=== PATIENT | female | born 1965 | race Caucasian/White ===

== ENCOUNTER 2017-09-20 11:33 | Emergency (ER) | payer BC ==
[2017-09-20] MEDS ORDERED: HYDROmorphone 2 MG/ML 1 ML SYRINGE IM STA (12:39)
[2017-09-20] MEDS ORDERED: ORPHENADRINE 30 MG/ML 2 ML VIAL IM STA (12:40)
--- NOTE | 2017-09-20 12:44 | ED ---
Back Pain HPI - General Chief Complaint: Back Pain/Injury Stated Complaint: Back Pain Time Seen by Provider: 09/20/17 12:13 Source: patient, RN notes reviewed Limitations: no limitations - History of Present Illness Initial Comments: 52-year-old female presents emergency Department chief complaint of right upper shoulder neck pain region. Patient states that this wasn't present for last week or so. Patient states is worse with movement. Patient states she over did it while scrubbing some force. She states is worse with movement of her neck. She states her is bulging of the muscle. Patient states she has not seen her primary care physician in the 2 weeks of the symptoms. Patient denies any chest pain or shortness breath no focal weakness. - Related Data Home Medications Medication Instructions Recorded Confirmed Hydrocodone/Acetaminophen [[place] 1 tab PO Q6H PRN 09/20/17 09/20/17 10-325] Menthol [Biofreeze] 1 applic TOPICAL QID 09/20/17 09/20/17 Naproxen [Naprosyn] 375 mg PO Q12HR 09/20/17 09/20/17 Previous Rx's Medication Instructions Recorded Cyclobenzaprine [Flexeril] 10 mg PO TID PRN #15 tab 09/20/17 methylPREDNISolone [Medrol Dose 4 mg PO DIRECTED #1 pack 09/20/17 Pack] Allergies Allergy/AdvReac Type Severity Reaction Status Date / Time No Known Allergies Allergy Verified 09/20/17 11:56 Review of Systems ROS Statement: Those systems with pertinent positive or pertinent negative responses have been documented in the HPI. ROS Other: All systems not noted in ROS Statement are negative. Past Medical History Additional Past Medical History / Comment(s): bad back History of Any Multi-Drug Resistant Organisms: None Reported Past Surgical History: Orthopedic Surgery Additional Past Surgical History / Comment(s): righ hand surgery, carpal tunnel , left forearm Past Psychological History: No Psychological Hx Reported Smoking Status: Current every day smoker Past Alcohol Use History: None Reported Past Drug Use History: None Reported General Exam Limitations: no limitations General appearance: alert, in no apparent distress Head exam: Present: atraumatic, normocephalic, normal inspection Eye exam: Present: normal appearance, PERRL, EOMI. Absent: scleral icterus, conjunctival injection, periorbital swelling ENT exam: Present: normal exam, normal oropharynx, mucous membranes moist, TM's normal bilaterally, normal external ear exam Neck exam: Present: normal inspection, tenderness (Over the right trapezius), full ROM (Mild discomfort with range of motion). Absent: meningismus, lymphadenopathy Respiratory exam: Present: normal lung sounds bilaterally. Absent: respiratory distress, wheezes, rales, rhonchi, stridor Cardiovascular Exam: Present: regular rate, normal rhythm, normal heart sounds. Absent: systolic murmur, diastolic murmur, rubs, gallop, clicks Extremities exam: Present: other (Right shoulder there is muscle spasm in the trapezius muscle, pain with palpation over the right trapezius full range of motion right shoulder neurovascular intact) Back exam: Present: normal inspection, full ROM. Absent: tenderness Neurological exam: Present: alert, oriented X3, CN II-XII intact, reflexes normal. Absent: motor sensory deficit Course Vital Signs 09/20/17 11:42 Temperature 97.5 F L Pulse Rate 98 Respiratory 16 Rate Blood Pressure 97/55 O2 Sat by Pulse 92 L Oximetry Medical Decision Making - Medical Decision Making 52-year-old female presented emergency department for right trapezius neck pain. Patient has muscle spasm, strain of her side of her neck. Patient be given muscle relaxers and Medrol Dosepak. She is advised to continue her pain medication and follow-up with primary care physician. Disposition Clinical Impression: Trapezius muscle spasm, Cervical strain Disposition: HOME SELF-CARE Condition: Stable Instructions: Cervical Strain (ED), Muscle Spasm (ED) Additional Instructions: Please return to the Emergency Department if symptoms worsen or any other concerns. Prescriptions: Cyclobenzaprine [Flexeril] 10 mg PO TID PRN #15 tab PRN Reason: Muscle Spasm methylPREDNISolone [Medrol Dose Pack] 4 mg PO DIRECTED #1 pack Referrals: Marco Conti MD [Primary Care Provider] - 1-2 days Time of Disposition: 12:44
[2017-09-20 13:22] VITALS: BP 94/64; PULSE 66; RESP 18; TEMP 97.1
== END 2017-09-20 13:22 | disposition home or self-care (01) ==
LOC: EC 11:33
DX: S16.1XXA Strain of muscle, fascia and tendon at neck level, initial encounter (principal); M62.838 Other muscle spasm; F17.200 Nicotine dependence, unspecified, uncomplicated; Z79.1 Long term (current) use of non-steroidal anti-inflammatories (NSAID); X58.XXXA Exposure to other specified factors, initial encounter
CPT/HCPCS: 99283; 96372 ×2; J1170; J2360

== ENCOUNTER 2017-09-29 09:01 | Emergency (ER) | payer BC ==
[2017-09-29 09:08] VITALS: TEMP 97.8
[2017-09-29] MEDS ORDERED: DIAZEPAM 5 MG TAB PO STA (09:50)
[2017-09-29 10:33] VITALS: BP 130/86; PULSE 70; RESP 18
--- NOTE | 2017-09-29 10:33 | ED ---
Neck Injury/Pain HPI - General Chief Complaint: Neck Pain/Injury Stated Complaint: RT SIDE NUMBNESS Time Seen by Provider: 09/29/17 09:21 Source: patient, RN notes reviewed Mode of arrival: wheelchair Limitations: no limitations - History of Present Illness Initial Comments: 52-year-old female presents emergency Department for recheck for right-sided neck pain. Patient's been junk with the symptoms for 2-3 weeks. Patient was seen here 9 days ago person complaint. Patient complaint of right neck bright upper shoulder region pain. She states that she has numbness and tingling that radiates from that point down into the tips of her fingers. She states that all of her digits at this time. She denies any associated weakness with it. Patient feels that it started while she was cleaning her house and states that she may have overused it or Giardia. Patient states she was actually able to work yesterday which is now made symptoms worse. Patient was advised to follow- up with PCP but states that she cannot get in until next week Tuesday. Patient denies any headache, chest pain, shortness of breath. She states that she does occasionally stretching but has not always structure. Patient's been taking her pain medication and muscle relaxers given here to her. - Related Data Home Medications Medication Instructions Recorded Confirmed Hydrocodone/Acetaminophen [[place] 1 tab PO Q6H PRN 09/20/17 09/29/17 10-325] Menthol [Biofreeze] 1 applic TOPICAL QID PRN 09/20/17 09/29/17 Naproxen [Naprosyn] 375 mg PO Q12HR PRN 09/20/17 09/29/17 Zolpidem [Ambien] 10 mg PO HS PRN 09/29/17 09/29/17 Previous Rx's Medication Instructions Recorded Cyclobenzaprine [Flexeril] 10 mg PO TID PRN #15 tab 09/20/17 Allergies Allergy/AdvReac Type Severity Reaction Status Date / Time No Known Allergies Allergy Verified 09/29/17 09:12 Review of Systems ROS Statement: Those systems with pertinent positive or pertinent negative responses have been documented in the HPI. ROS Other: All systems not noted in ROS Statement are negative. Past Medical History Additional Past Medical History / Comment(s): chronic back pain History of Any Multi-Drug Resistant Organisms: None Reported Past Surgical History: Orthopedic Surgery Additional Past Surgical History / Comment(s): righ hand surgery, carpal tunnel , left forearm Past Psychological History: No Psychological Hx Reported Smoking Status: Current every day smoker Past Alcohol Use History: None Reported Past Drug Use History: None Reported General Exam Limitations: no limitations General appearance: alert, in no apparent distress Head exam: Present: atraumatic, normocephalic, normal inspection Eye exam: Present: normal appearance, PERRL, EOMI. Absent: scleral icterus, conjunctival injection, periorbital swelling ENT exam: Present: normal exam, normal oropharynx, mucous membranes moist, TM's normal bilaterally, normal external ear exam Neck exam: Present: normal inspection, tenderness (Tenderness of the right trapezius, muscle spasm noted, mild tenderness of the right paraspinal region), full ROM. Absent: meningismus, lymphadenopathy Respiratory exam: Present: normal lung sounds bilaterally. Absent: respiratory distress, wheezes, rales, rhonchi, stridor Cardiovascular Exam: Present: regular rate, normal rhythm, normal heart sounds. Absent: systolic murmur, diastolic murmur, rubs, gallop, clicks Extremities exam: Present: other (Upper extremity strength equal bilaterally, neurovascular intact Refill less than 2 seconds with skein drier strength equal 5/5) Course Vital Signs 09/29/17 09/29/17 09:04 10:32 Temperature 97.8 F Pulse Rate 94 70 Respiratory 20 18 Rate Blood Pressure 166/75 130/86 O2 Sat by Pulse 99 93 L Oximetry Medical Decision Making - Medical Decision Making I went up-to-date the patient on her CT results and discuss discharge medications the patient apparently eloped. Patient was not in the room at this time. Disposition Clinical Impression: Trapezius muscle spasm, Cervical strain Disposition: Left Against Medical Advice Referrals: Marco Conti MD [Primary Care Provider] - 1-2 days
--- NOTE | 2017-09-29 10:46 | CT ---
EXAMINATION TYPE: CT cervical spine wo con DATE OF EXAM: 09/29/2017 COMPARISON: NONE HISTORY: Neck pain radiating down right arm, numbness x1 week. No prior. Scanned by:LS and MM. CT DLP: 319 mGycm. Automated Exposure Control for Dose Reduction was Utilized. TECHNIQUE: CT scan of the cervical spine is obtained without contrast, axial images are obtained, sa gittal and coronal reformatted images are also reviewed. FINDINGS: Cervical spine is visualized in its entirety from C1 through upper thoracic levels, demonst rates straightened alignment without evidence of acute fracture or dislocation. Prevertebral soft ti ssue appears within normal limits. The C1-C2 articulation is within normal limits on the coronal maite ges. Vertebral body heights and disc space heights are fairly well-maintained with exception of mild disc space narrowing C6-C7 level. Posterior spur disc complex is seen at this level on sagittal images. Th e atlantodental interval narrowing is noted. Review of axial images shows the C2-C3, C3-C4, and C4-C5 levels all to appear within normal limits. Axial images at C5-C6 level show broad-based posterior disc protrusion and mild popliteal facet degen erative changes bilaterally. There is mild right greater than left neural foraminal narrowing at this level and minimal effacement of anterior thecal sac. Axial images at C6-C7 level show posterior spur disc complex effacing anterior thecal sac and causing moderate to severe bilateral neural foraminal narrowing. Axial images at C7-T1 level are felt within normal limits. Thyroid gland is felt within normal limits. Visualized lung apices are clear. IMPRESSION: There is no acute fracture or dislocation evident in the cervical spine. Straightening of cervical spine with degenerative change C6-C7 level noted.
== END 2017-09-29 11:25 | disposition left against medical advice (07) ==
LOC: EC 09:01
DX: S16.1XXA Strain of muscle, fascia and tendon at neck level, initial encounter (principal); M62.838 Other muscle spasm; F17.200 Nicotine dependence, unspecified, uncomplicated; X58.XXXA Exposure to other specified factors, initial encounter
CPT/HCPCS: 72125; 99284

== ENCOUNTER → 2019-06-28 | Outpatient (CLI) | payer BC ==
--- NOTE | 2019-06-28 11:10 | MM ---
Reason for exam: screening (asymptomatic). Baseline mammogram. History: Patient is postmenopausal and is nulliparous. Physical Findings: Nurse did not find any significant physical abnormalities on exam. MG Screening Mammo w CAD Bilateral CC and MLO view(s) were taken. The breast tissue is heterogeneously dense. This may lower the sensitivity of mammography. Benign appearing bilateral calcifications. No suspicious abnormality. These results were verbally communicated with the patient and result sheet given to the patient on 06/28/19. ASSESSMENT: Benign, BI-RAD 2 RECOMMENDATION: Routine screening mammogram of both breasts in 1 year.
--- NOTE | 2019-06-28 14:15 | BD ---
EXAMINATION TYPE: Axial Bone Density DATE OF EXAM: 06/28/2019 COMPARISON: NONE CLINICAL HISTORY: Z 13.820 Height: 65 inches Weight: 113 FRAX RISK QUESTIONS: Alcohol (3 or more units per day): no Family History (Parent hip fracture): no Glucocorticoids (More than 3mos): no (Ex: prednisone, prednisolone, methylprednisolone, dexamethasone, and hydrocortisone). History of Fracture in Adulthood: yes Secondary Osteoporosis: 1. Type 1 Diabetes: no 2. Hyperthyroidism: no 3. Menopause before 45: no, at 43 4. Malnutrition: no 5. Chronic liver disease: no Rheumatoid Arthritis: unsure Current Tobacco Use: yes RISK FACTORS HISTORY OF: History of Wrist Fracture: yes When: 2012 Surgery to Wrist left): yes When: 2012 several surgeries to right wrist for carpal tunnel, ganglion cyst Family History of Osteoporosis: not to knowledge of patient Active: yes Diet low in dairy products/other sources of calcium: no Postmenopausal woman: yes Take estrogen and/or progesterone medications: no Lost more than 2 inches in height since high school: no Frequent falls: no Poor Health: no Hyperparathyroidism: no Adrenal Insufficiency: no MEDICATIONS: Prednisone or other steroids: no Thyroid Medications: no Osteoporosis Medications: no Additional Medications: Additional History: "back problems" EXAM MEASUREMENTS: Bone mineral densitometry was performed using the [employer] System. Bone mineral density as measured about the Lumbar spine is: ----- L1-L4(G/cm2): 0.852 T Score Values are as follows: ----- L2: -3.0 ----- L3: -3.1 ----- L4: -2.4 ----- L1-L4: -2.7 Bone mineral density BASELINE Bone mineral density about the R hip (g/cm2): 0.729 Bone mineral density about the L hip (g/cm2): 0.733 T Score values are as follows: -----R Neck: -2.2 -----L Neck: -2.2 -----R Total: -1.8 -----L Total: -1.9 Bone mineral density BASELINE IMPRESSION: Osteoporosis (T Score less than -2.5) with regards to the lumbar spine. There is increased fracture risk and therapy is usually indicated based on age. Re-Screen 1-2 years. NOTE: T-SCORE=SD OF THE YOUNG ADULT MEAN.
== END | disposition home or self-care (01) ==
LOC: RADMAMWWP 09:25
PROVIDERS: ATTEND Family Medicine
DX: Z12.31 Encounter for screening mammogram for malignant neoplasm of breast (principal); M81.0 Age-related osteoporosis without current pathological fracture
CPT/HCPCS: 77067; 77080

== ENCOUNTER 2020-05-26 16:18 | Emergency (ER) | payer BC ==
[2020-05-26 16:22] LABS: Glucose,Whole Blood 392 mg/dL (75-99)
[2020-05-26] MEDS ORDERED: NALOXONE 0.4 MG/ML 10 ML VIAL IVP PRN (16:34)
--- NOTE | 2020-05-26 16:41 | ED ---
General Adult HPI - General Chief complaint: Overdose Stated complaint: Overdose Source: patient Mode of arrival: wheelchair Limitations: altered mental status - History of Present Illness Initial comments: Dictation was produced using [employer] dictation software. please excuse any grammatical, word or spelling errors. This patient was cared for during a federal and state declared state of emergency secondary to Covid 19 Chief Complaint: 55-year-old male presents with altered mental status. History of Present Illness: 55-year-old female presents for altered mental status. History is obtained from . came home from work when he noticed his was unresponsive. tach the patient up into the car and brought her immediately to the emergency department. reports that patient was last seen normal last night. He left for work today patient was sleeping. reports the patient has a history of trouble with pills. Ac cording to patient has not had any history of drug abuse or illicit drug use. Unable to obtain secondary to mental status. PHYSICAL EXAM: General Impression: Unresponsive, positive pulse, cyanotic HEENT: Normocephalic atraumatic, extra-ocular movements intact, pupils equal and reactive to light bilaterally, mucous membranes moist. Cardiovascular: Heart regular rate and rhythm Chest: Coarse breath sounds bilaterally Abdomen: abdomen soft, non-tender, non-distended, no organomegaly Musculoskeletal: Pulses present and equal in all extremities, no peripheral edema Motor: no focal deficits noted Neurological: CN II-XII grossly intact, no focal motor or sensory deficits noted Skin: Intact with no visualized rashes ED course: 55-year-old female brought to the emergency department for altered mental status. Patient is obtunded she was rushed from triage back to trauma bay #2. Patient was immediately bagged and placed on oxygen. IV was established immediately. Patient is given 2 mg of IV Narcan with improvement of mentation. Patient says appears very lethargic. More history was obtained from the patient. She reports that she does not use pills. [facility] report was reviewed on patient. Patient gets monthly prescriptions for [place] and Ambien. Patient last filled her medications on April 29 where she got 120 [place] pills and 30 Ambien pills. Patient reevaluated at bedside. Patient appears to be at baseline currently according to the patient and patient's . More history was obtained. Patient reports that she had 2 fentanyl patches that were given to her from a friend that 5 years ago that she has kept over the years. She reports that she put the fentanyl patches on her tongue. She denies any suicidal or homicidal ideation.Laboratory evaluation obtained. CBC remarkable. Metabolic panel is negative. There is black acidosis of 4.7. Rest of labs unremarkable. Patient observed in the emergency department with stable medical condition. Computed tomography scan of the brain is unremarkable. Chest x-ray is nonacute. Patient able to read baseline without any complications. Repeat lactic acid was ordered with the level I.5. Patient did however have an ammonia level is elevated of 60. She's not showing any symptoms of hyper ammonia level. Patient is well-appearing at this time. Patient is told not to take unknown medications and especially not to put fentanyl patches in her mouth. She is warned of the effects of overdose. Return parameters discussed. Patient clear for discharge. Patient is told to follow-up with her primary care physician regarding her elevated ammonia level. EKG interpretation: Ventricular rate 76, sinus rhythm,. Interval 174, QRS 112, QTc 531. No MT prolongation, no ST or T-wave changes noted. QT prolongation. Repeat EKG was performed with QTC measuring at 499. No other changes noted. - Related Data Home Medications Medication Instructions Recorded Confirmed Hydrocodone/Acetaminophen [[place] 1 tab PO QID PRN 09/20/17 05/26/20 10-325] Zolpidem [Ambien] 10 mg PO HS PRN 09/29/17 05/26/20 Ibuprofen [Motrin Ib] 400 mg PO Q6HR PRN 05/26/20 05/26/20 Allergies Allergy/AdvReac Type Severity Reaction Status Date / Time No Known Allergies Allergy Verified 05/26/20 18:14 Review of Systems ROS Statement: Those systems with pertinent positive or pertinent negative responses have been documented in the HPI. ROS Other: All systems not noted in ROS Statement are negative. Past Medical History Additional Past Medical History / Comment(s): chronic back pain History of Any Multi-Drug Resistant Organisms: None Reported Past Surgical History: Orthopedic Surgery Additional Past Surgical History / Comment(s): righ hand surgery, carpal tunnel, left forearm Past Psychological History: No Psychological Hx Reported Smoking Status: Current every day smoker Past Alcohol Use History: None Reported Past Drug Use History: None Reported General Exam Limitations: altered mental status Course Vital Signs 05/26/20 05/26/2020 16:19 16:20 17:36 Temperature 97.5 F L Pulse Rate 71 79 Respiratory 12 10 L 18 Rate Blood Pressure 127/66 103/88 O2 Sat by Pulse 100 100 Oximetry Medical Decision Making - Lab Data Result diagrams: 05/26/20 16:33 05/26/20 16:35 Lab Results 05/26/20 05/26/20 05/26/20 Range/Units 16:21 16:33 16:33 WBC 7.8 (3.8-10.6) k/uL RBC 4.27 (3.80-5.40) m/uL Hgb 12.6 (11.4-16.0) gm/dL Hct 40.3 (34.0-46.0) % MCV 94.4 (80.0-100.0) fL MCH 29.5 (25.0-35.0) pg MCHC 31.2 (31.0-37.0) g/dL RDW 13.6 (11.5-15.5) % Plt Count 217 (150-450) k/uL Neutrophils % 49 % Lymphocytes % 42 % Monocytes % 4 % Eosinophils % 2 % Basophils % 1 % Neutrophils # 3.8 (1.3-7.7) k/uL Lymphocytes # 3.3 (1.0-4.8) k/uL Monocytes # 0.3 (0-1.0) k/uL Eosinophils # 0.2 (0-0.7) k/uL Basophils # 0.1 (0-0.2) k/uL Hypochromasia Slight Sodium (137-145) mmol/L Potassium (3.5-5.1) mmol/L Chloride (98-107) mmol/L Carbon Dioxide (22-30) mmol/L Anion Gap mmol/L BUN (7-17) mg/dL Creatinine (0.52-1.04) mg/dL Est GFR (CKD-EPI)AfAm (>60 ml/min/1.73 sqM) Est GFR (CKD-EPI)NonAf (>60 ml/min/1.73 sqM) Glucose (74-99) mg/dL POC Glucose (mg/dL) 392 H (75-99) mg/dL POC Glu Community Education Specialist ID [place] Plasma Lactic Acid [place] 4.7 H* (0.7-2.0) mmol/L Calcium (8.4-10.2) mg/dL Magnesium (1.6-2.3) mg/dL Total Bilirubin (0.2-1.3) mg/dL AST (14-36) U/L ALT (4-34) U/L Alkaline Phosphatase (38-126) U/L Ammonia 60 H (<30) umol/L Total Protein (6.3-8.2) g/dL Albumin (3.5-5.0) g/dL Salicylates mg/dL Acetaminophen ug/mL Serum Alcohol mg/dL 05/26/20 05/26/20 Range/Units 16:35 17:47 WBC (3.8-10.6) k/uL RBC (3.80-5.40) m/uL Hgb (11.4-16.0) gm/dL Hct (34.0-46.0) % MCV (80.0-100.0) fL MCH (25.0-35.0) pg MCHC (31.0-37.0) g/dL RDW (11.5-15.5) % Plt Count (150-450) k/uL Neutrophils % % Lymphocytes % % Monocytes % % Eosinophils % % Basophils % % Neutrophils # (1.3-7.7) k/uL Lymphocytes # (1.0-4.8) k/uL Monocytes # (0-1.0) k/uL Eosinophils # (0-0.7) k/uL Basophils # (0-0.2) k/uL Hypochromasia Sodium 135 L (137-145) mmol/L Potassium 3.4 L (3.5-5.1) mmol/L Chloride 102 (98-107) mmol/L Carbon Dioxide 21 L (22-30) mmol/L Anion Gap 12 mmol/L BUN 11 (7-17) mg/dL Creatinine 0.93 (0.52-1.04) mg/dL Est GFR (CKD-EPI)AfAm 80 (>60 ml/min/1.73 sqM) Est GFR (CKD-EPI)NonAf 69 (>60 ml/min/1.73 sqM) Glucose 349 H (74-99) mg/dL POC Glucose (mg/dL) (75-99) mg/dL POC Glu Community Education Specialist ID Plasma Lactic Acid [place] 1.5 (0.7-2.0) mmol/L Calcium 8.9 (8.4-10.2) mg/dL Magnesium 2.2 (1.6-2.3) mg/dL Total Bilirubin 0.7 (0.2-1.3) mg/dL AST 29 (14-36) U/L ALT 17 (4-34) U/L Alkaline Phosphatase 70 (38-126) U/L Ammonia (<30) umol/L Total Protein 6.9 (6.3-8.2) g/dL Albumin 4.5 (3.5-5.0) g/dL Salicylates <1.0 mg/dL Acetaminophen <10.0 ug/mL Serum Alcohol <10 mg/dL Disposition Clinical Impression: Opiate overdose Disposition: HOME SELF-CARE Condition: Fair Instructions (If sedation given, give patient instructions): Adult Overdose (ED), Fentanyl (Into the mouth) Additional Instructions: He had an elevated ammonia level. At this point is unclear what is causing her elevated ammonia level. Please follow-up with her primary care physician regarding this. Is patient prescribed a controlled substance at d/c from ED?: No Referrals: Marco Conti MD [Primary Care Provider] - 1-2 days Time of Disposition: 19:01
[2020-05-26 16:45] LABS: Basophils # (A) 0.1 k/uL (0-0.2); Basophils % (A) 1 %; Eosinophils # (A) 0.2 k/uL (0-0.7); Eosinophils % (A) 2 %; HCT 40.3 % (34.0-46.0); HGB 12.6 gm/dL (11.4-16.0); Hypochromasia Slight; Lymphocytes # (A) 3.3 k/uL (1.0-4.8); Lymphocytes % (A) 42 %; MCH 29.5 pg (25.0-35.0); MCHC 31.2 g/dL (31.0-37.0); MCV 94.4 fL (80.0-100.0); Mean Platelet Volume 9.7; Monocytes # (A) 0.3 k/uL (0-1.0); Monocytes % (A) 4 %; Neutrophils # (A) 3.8 k/uL (1.3-7.7); Neutrophils % (A) 49 %; Platelet Count 217 k/uL (150-450); RBC 4.27 m/uL (3.80-5.40); RDW 13.6 % (11.5-15.5); WBC 7.8 k/uL (3.8-10.6)
[2020-05-26 16:54] LABS: ALT 17 U/L (4-34); AST 29 U/L (14-36); Acetaminophen <10.0 ug/mL; African American GFR (CKD) 80 (>60 ml/min/1.73 sqM); Albumin 4.5 g/dL (3.5-5.0); Alcohol <10 mg/dL; Alkaline Phosphatase 70 U/L (38-126); Anion Gap 12 mmol/L; Blood Urea Nitrogen 11 mg/dL (7-17); Calcium 8.9 mg/dL (8.4-10.2); Carbon Dioxide 21 mmol/L (22-30); Chloride 102 mmol/L (98-107); Glucose 349 mg/dL (74-99); Magnesium 2.2 mg/dL (1.6-2.3); Non-African American GFR(CKD) 69 (>60 ml/min/1.73 sqM); Potassium 3.4 mmol/L (3.5-5.1); Salicylate <1.0 mg/dL; Sodium 135 mmol/L (137-145); Total Bilirubin 0.7 mg/dL (0.2-1.3); Total Protein 6.9 g/dL (6.3-8.2)
[2020-05-26 17:19] LABS: Lactic Acid, Venous 4.7 mmol/L (0.7-2.0)
--- NOTE | 2020-05-26 17:20 | CT ---
EXAMINATION TYPE: CT brain wo con DATE OF EXAM: 05/26/2020 COMPARISON: None HISTORY: Altered mental status. CT DLP: 1082.4 mGycm Automated exposure control for dose reduction was used. Ventricles and sulci appear normal. There is no mass effect nor midline shift. There is no sign of in tracranial hemorrhage. The calvarium is intact. There is no evidence of cerebral edema. IMPRESSION: Negative unenhanced head CT scan.
--- NOTE | 2020-05-26 17:48 | XR ---
EXAMINATION TYPE: XR chest 1V portable DATE OF EXAM: 05/26/2020 COMPARISON: December 30, 2009 HISTORY: Overdose TECHNIQUE: 2 views FINDINGS: There is no heart failure nor confluent pneumonic infiltrate. Costophrenic angles are clear . There are chest leads. Bony thorax is intact. IMPRESSION: No active cardiopulmonary disease. No change.
[2020-05-26 19:19] VITALS: BP 105/78; PULSE 78; RESP 16; TEMP 97
== END 2020-05-26 19:16 | disposition home or self-care (01) ==
LOC: EC 16:18
DX: T40.601A Poisoning by unspecified narcotics, accidental (unintentional), initial encounter (principal); E87.2 Acidosis; F17.200 Nicotine dependence, unspecified, uncomplicated
CPT/HCPCS: 99285; 96374; 36415; 93005; 80053; 82140; 83605; 83735; 85025; 83520; 80329; 80320; 71045; 70450; J2310

== ENCOUNTER → 2021-01-22 | Outpatient (CLI) | payer BC ==
--- NOTE | 2021-01-23 10:57 | MM ---
Reason for exam: screening (asymptomatic). Last mammogram was performed 1 year and 7 months ago. History: Patient is postmenopausal and is nulliparous. Physical Findings: A clinical breast exam by your physician is recommended on an annual basis and results should be correlated with mammographic findings. MG Screening Mammo w CAD Bilateral CC and MLO view(s) were taken. Prior study comparison: June 28, 2019, bilateral MG screening mammo w CAD. The breast tissue is heterogeneously dense. This may lower the sensitivity of mammography. Finding #1: There is a 20 mm equal density (isodense) mass in the upper outer quadrant of the right breast. Finding #2: There are typically benign calcifications in both breasts. ASSESSMENT: Incomplete: need additional imaging evaluation, BI-RAD 0 RECOMMENDATION: Special view mammogram of the right breast. If lesion persists on supplemental views, image directed ultrasound is recommended. [facility] will attempt to contact patient to return for supplemental views and ultrasound if indicated.
== END | disposition home or self-care (01) ==
LOC: RADMAMWWP 13:37
PROVIDERS: ATTEND Family Medicine
DX: Z12.31 Encounter for screening mammogram for malignant neoplasm of breast (principal); Z78.0 Asymptomatic menopausal state
CPT/HCPCS: 77067

== ENCOUNTER → 2021-05-15 | Outpatient (CLI) | payer BC ==
--- NOTE | 2021-05-15 12:17 | MM ---
Reason for exam: additional evaluation requested from abnormal screening. Last mammogram was performed 4 months ago. History: Patient is postmenopausal and is nulliparous. Physical Findings: Nurse did not find any significant physical abnormalities on exam. MG Work Up Mamm w CAD RT CC and MLO view(s) were taken of the right breast. Prior study comparison: January 22, 2021, bilateral MG screening mammo w CAD. June 28, 2019, bilateral MG screening mammo w CAD. The breast tissue is heterogeneously dense. This may lower the sensitivity of mammography. The previously seen asymmetry is pliable and presumably represented overlapping fibroglandular tissue. These results were verbally communicated with the patient and result sheet given to the patient on 05/15/21. ASSESSMENT: Negative, BI-RAD 1 RECOMMENDATION: Return to routine screening mammogram schedule for both breasts.
== END | disposition home or self-care (01) ==
LOC: RADMAMWWP 10:20
PROVIDERS: ATTEND Family Medicine
DX: R92.2 Inconclusive mammogram (principal)
CPT/HCPCS: 77065